=== PATIENT | female | born 1965 | race African-American/Black ===

== ENCOUNTER 2022-03-09 10:37 | Emergency (ER) | payer OTHER, SELFPAY ==
[~2022-03-09 10:37] MED LIST: Iopamidol 300 61% 100 ML VIAL FS ONE
[2022-03-09] MEDS ORDERED: Ondansetron PF 4 MG/2 ML Vial ONE (11:28)
[2022-03-09] MEDS ORDERED: Morphine 4 MG/ML VIAL ONE ×2 (11:29→14:20)
[2022-03-09] MEDS ORDERED: Ketorolac Tromethamine 30 MG/ML VIAL ONE (11:30)
[2022-03-09 11:37] LABS: Hemoglobin 10.3 g/dL (12.0-15.5); Mean Corpuscular HGB CONC 32.5 g/dL (32.0-36.0); Mean Corpuscular Hemoglobin 27.6 pg (27.0-33.0); Mean Platelet Volume 9.1 fl (7.4-10.4); Platelet Count 616 10x3/uL (150-450); RBC Distribution Width 13.9 % (11.5-14.5); Red Blood Cell (RBC) Count 3.73 10x6/uL (3.90-5.03); White Blood Cell (WBC) Count 21.1 10x3/uL (3.5-10.5)
[2022-03-09 11:38] LABS: MDiff Complete? YES
[2022-03-09 11:54] LABS: ALT (SGPT) 15 U/L (8-55); AST (SGOT) 16 U/L (5-34); Albumin 3.5 g/dL (3.5-5.0); Alkaline Phosphatase 85 U/L (40-110); Anion Gap 18 mmol/L (10-20); BUN (Urea Nitrogen) 17 mg/dL (9.8-20.1); Bilirubin, Total 0.4 mg/dL (0.2-1.2); Calc. Creatinine Clearance 0 mL/min (70-130); Calcium 9.5 mg/dL (7.8-10.44); Carbon Dioxide 26 mmol/L (22-29); Chloride 100 mmol/L (98-107); Estimated GFR 87; Globulin 4.6 g/dL (2.4-3.5); Glucose 91 mg/dL (70-105); Lipase 4 U/L (8-78); Protein, Total 8.1 g/dL (6.0-8.3); Sodium 141 mmol/L (136-145)
[2022-03-09 11:55] LABS: Band 3 % (5-11); Lymphocytes 19 % (21-51); Monocytes 5 % (0-10); Neutrophil 73 % (42-75)
[2022-03-09 11:56] LABS: Platelet Morphology Comment Appears Increased
[2022-03-09] MEDS ORDERED: Cefepime 2 GM VIAL ONE (12:29)
[2022-03-09 13:57] LABS: SARS-CoV-2 NAA Rapid Test Not Detected (NotDetected)
== END 2022-03-09 15:53 | disposition short-term general hospital (02) ==
LOC: CSHERS 10:37
DX: N13.30 Unspecified hydronephrosis (principal); K56.600 Partial intestinal obstruction, unspecified as to cause; Z20.822 Contact with and (suspected) exposure to COVID-19
CPT/HCPCS: 36415; 71045; 74177; 80053; 83605; 83690; 85025; 87040; 96361; 96365; 96366; 96367; 96375; 96376; J0692; J1885; J2270; J2405; J3370; Q9967; U0002